=== PATIENT | male | born 1995 | race Hispanic/Latino ===

== ENCOUNTER 2019-02-26 18:38 | Emergency (ER) | payer SELFPAY ==
[2019-02-26 20:25] LABS: Urine Bacteria <20 /HPF (NONE SEEN); Urine Culture Reflex Order NOT NEEDED; Urine Mucus 1+ /HPF (NONE SEEN)
[2019-02-26 20:25] LABS: Urine Blood TRACE (NEG); Urine Glucose NEGATIVE (NEG); Urine Protein 1+ (NEG); Urine Specific Gravity >1.030 (1.005-1.030)
[2019-02-26] MEDS ORDERED: KETOROLAC 30 MG/ML INJ ONE (21:45)
[2019-02-26] MEDS ORDERED: NA CHLORIDE 0.9% 1,000 ML ONE (21:45)
[2019-02-26 21:50] LABS: Absolute Lymphocytes (CBC) 2.4 K/uL (0.7-4.9); Basophils % 0.5 % (0-1.3); Lymphocytes % 31.1 % (15.3-44.8); RBC Red Blood Cell Count 4.81 M/uL (4.33-5.43)
[2019-02-26 22:00] LABS: BUN Blood Urea Nitrogen 10 mg/dL (7-18); Bicarbonate 32 mmol/L (21-32); Glucose Level 81 mg/dL (74-106); Sodium Level 138 mmol/L (136-145)
[2019-02-26] MEDS ORDERED: CEFTRIAXONE/SWI 1gm 1 GM/10 ML SYR ONE (23:23)
--- NOTE | 2019-02-26 23:31 | EDPHYS ---
Physician Documentation [facility] Name: Renny Dixon Age: 23 yrs Sex: Male : 1995 Arrival Date: 02/26/2019 Time: 18:47 Bed 18 Private MD: ED Physician aDt Oneill HPI: 02/27 02:45 This 23 yrs old Male presents to ER via Ambulatory with complaints of Back tw4 Pain, Urinary Problem - blood. 02:45 The patient presents with pain that is acute, with no known mechanism of injury. The tw4 symptoms are located in the low back. Onset: The symptoms/episode began/occurred 1 week(s) ago. The pain does not radiate. Associated signs and symptoms: Pertinent positives: dysuria. The problem was sustained without known cause. Modifying factors: The patient symptoms are alleviated by nothing, the patient symptoms are aggravated by nothing. Severity of symptoms: At their worst the symptoms were moderate, in the emergency department the symptoms have improved. The patient has not experienced similar symptoms in the past. Historical: - Allergies: 02/26 19:26 No Known Allergies; aj1 - Home Meds: 19:26 None [Active]; aj1 - PMHx: 19:26 None; aj1 - PSHx: 19:26 None; aj1 - Immunization history:: Flu vaccine is not up to date. - Social history:: Smoking status: Patient/guardian denies using tobacco. - Ebola Screening: : Patient denies travel to an Ebola-affected area in the 21 days before illness onset. ROS: 02/27 02:45 Constitutional: Negative for fever, chills, and weight loss, Eyes: Negative for injury, tw4 pain, redness, and discharge, Cardiovascular: Negative for chest pain, palpitations, and edema, Respiratory: Negative for shortness of breath, cough, wheezing, and pleuritic chest pain, Abdomen/GI: Negative for abdominal pain, nausea, vomiting, diarrhea, and constipation, MS/Extremity: Negative for injury and deformity, Skin: Negative for injury, rash, and discoloration, Neuro: Negative for headache, weakness, numbness, tingling, and seizure. Back: Positive for pain at rest, Negative for injury or acute deformity, decreased range of motion, radiated pain. Exam: 02:45 Constitutional: This is a well developed, well nourished patient who is awake, alert, tw4 and in no acute distress. Head/Face: Normocephalic, atraumatic. Chest/axilla: Normal chest wall appearance and motion. Nontender with no deformity. No lesions are appreciated. Cardiovascular: Regular rate and rhythm with a normal S1 and S2. No gallops, murmurs, or rubs. Normal PMI, no JVD. No pulse deficits. Respiratory: Lungs have equal breath sounds bilaterally, clear to auscultation and percussion. No rales, rhonchi or wheezes noted. No increased work of breathing, no retractions or nasal flaring. Abdomen/GI: Soft, non-tender, with normal bowel sounds. No distension or tympany. No guarding or rebound. No evidence of tenderness throughout. Back: No spinal tenderness. No costovertebral tenderness. Full range of motion. MS/ Extremity: Pulses equal, no cyanosis. Neurovascular intact. Full, normal range of motion. Neuro: Awake and alert, GCS 15, oriented to person, place, time, and situation. Cranial nerves II-XII grossly intact. Motor strength 5/5 in all extremities. Sensory grossly intact. Cerebellar exam normal. Normal gait. Vital Signs: 02/26 19:26 BP 153 / 99; Pulse 78; Resp 18; Temp 98.4; Pulse Ox 100% on R/A; Weight 95.25 kg (R); aj1 Height 5 ft. 8 in. (172.72 cm) (R); Pain 7/10; 21:24 BP 110 / 60; Pulse 74; Resp 18; Pulse Ox 100% on R/A; wh 22:52 BP 118 / 54; Pulse 72; Resp 18; Pulse Ox 100% on R/A; wh 23:43 BP 119 / 56; Pulse 70; Resp 18; Pulse Ox 100% ; wh 19:26 Body Mass Index 31.93 (95.25 kg, 172.72 cm) [facility] MDM: 20:50 Patient medically screened. tw4 02/27 02:45 Differential diagnosis: Fatigue Joint Injury Ligament Injury sprain. Data reviewed: tw4 vital signs, nurses notes. Data reviewed: lab test result(s), CBC, white blood cell count, hemoglobin, hematocrit, platelets, electrolytes, sodium, potassium, chloride, serum bicarbonate, BUN, creatinine, serum glucose, hepatic panel, urinalysis, bacteruria, hematuria, radiologic studies, CT scan, and as a result, I will discharge patient. Data interpreted: Pulse oximetry: Interpretation: normal. Counseling: I had a detailed discussion with the patient and/or guardian regarding: the historical points, exam findings, and any diagnostic results supporting the discharge/admit diagnosis, lab results, radiology results. Special discussion: I discussed with the patient/guardian in detail that at this point there is no indication for admission to the hospital. It is understood, however, that if the symptoms persist or worsen the patient needs to return immediately for re-evaluation. 02/26 20:10 Order name: Urine Microscopic Only; Complete Time: 21:18 [facility] 02/26 21:18 Interpretation: Normal except: URBC 10-20; UWBC 10-20. [facility] 02/26 20:10 Order name: Urine Culture [facility] 02/26 20:18 Order name: Urine Dipstick--Ancillary (enter results); Complete Time: 21:20 [facility] 02/26 21:21 Interpretation: Normal except: USPGR >1.030; UBLD TRACE; UPROT 1+; UESTR TRACE. [facility] 02/26 21:23 Order name: CT Stone Protocol [facility] 02/26 21:23 Order name: CBC with Diff [facility] 02/26 21:23 Order name: BMP [facility] 02/26 20:01 Order name: Urine Dipstick-Ancillary (obtain specimen); Complete Time: 20:58 aa1 Administered Medications: 02/26 21:48 Drug: TORadol 30 mg Route: IVP; Site: left antecubital; 23:27 Follow up: Response: No adverse reaction; Pain is decreased 21:48 Drug: NS 0.9% 1000 ml Route: IV; Rate: 1 bolus; Site: left antecubital; 23:27 Follow up: Response: No adverse reaction; IV Status: Completed infusion 23:22 Drug: Rocephin - (cefTRIAXone) 1 grams Route: IVPB; Infused Over: 30 mins; Site: left wh antecubital; 23:28 Follow up: Response: No adverse reaction 23:45 Follow up: Response: No adverse reaction; IV Status: Completed infusion Disposition: 02/26/19 23:30 Discharged to Home. Impression: Urinary tract infection, site not specified. - Condition is Stable. - Discharge Instructions: Hematuria, Adult, Urinary Tract Infection, Adult. - Prescriptions for Macrobid 100 mg Oral Capsule - take 1 capsule by ORAL route every 12 hours for 10 days; 20 capsule. - Medication Reconciliation Form, Thank You Letter, Antibiotic Education, Prescription Opioid Use form. - Follow up: Private Physician; When: Upon discharge from the Emergency Department; Reason: Recheck today's complaints, Continuance of care. - Problem is new. - Symptoms have improved. Signatures: Dispatcher [employer] Jessica Baptiste, RN RN aj1 Bernice Alves RN RN aa1 Nadege Grijalva Terrence, MD MD tw4 Corrections: (The following items were deleted from the chart) 21:21 21:18 [place] 01-26; [facility] [place]. tw4 4 23:44 23:30 02/26/2019 23:30 Discharged to Home. Impression: Urinary tract infection, site wh not specified. Condition is Stable. Forms are Medication Reconciliation Form, Thank You Letter, Antibiotic Education, Prescription Opioid Use. Follow up: Private Physician; When: Upon discharge from the Emergency Department; Reason: Recheck today's complaints, Continuance of care. Problem is new. Symptoms have improved. tw4
--- NOTE | 2019-02-26 23:31 | ER ---
Nurse's Notes [facility] Name: Renny Dixon Age: 23 yrs Sex: Male : 1995 Arrival Date: 02/26/2019 Time: 18:47 Bed 18 Private MD: Diagnosis: Urinary tract infection, site not specified Presentation: 02/26 19:25 Presenting complaint: Patient states: "My lower back is hurting, but when I went to [facility] urinate a couple times I noticed there was blood" Denies fever. Transition of care: patient was not received from another setting of care. Onset of symptoms was February 22, 2019. Risk Assessment: Do you want to hurt yourself or someone else? Patient reports no desire to harm self or others. Initial Sepsis Screen: Does the patient meet any 2 criteria? No. Patient's initial sepsis screen is negative. Does the patient have a suspected source of infection? No. Patient's initial sepsis screen is negative. Care prior to arrival: None. 19:25 Method Of Arrival: Ambulatory [facility] 19:25 Acuity: ADRIAN 3 [facility] Triage Assessment: 19:26 General: Appears in no apparent distress. comfortable, Behavior is calm, cooperative, aj1 appropriate for age. Pain: Complains of pain in low back area Pain currently is 7 out of 10 on a pain scale. Neuro: Level of Consciousness is awake, alert, obeys commands. Cardiovascular: Patient's skin is warm and dry. Respiratory: Airway is patent Respiratory effort is even, unlabored, Respiratory pattern is regular, symmetrical. : Reports blood in urine. Musculoskeletal: Range of motion: intact in all extremities. Historical: - Allergies: 19:26 No Known Allergies; aj1 - Home Meds: 19:26 None [Active]; aj1 - PMHx: 19:26 None; aj1 - PSHx: 19:26 None; aj1 - Immunization history:: Flu vaccine is not up to date. - Social history:: Smoking status: Patient/guardian denies using tobacco. - Ebola Screening: : Patient denies travel to an Ebola-affected area in the 21 days before illness onset. Screenin:24 Abuse screen: Denies threats or abuse. Denies injuries from another. Nutritional wh screening: No deficits noted. Tuberculosis screening: No symptoms or risk factors identified. Fall Risk None identified. Assessment: 21:21 General: Appears in no apparent distress. Behavior is calm, cooperative, appropriate wh for age. Pain: Complains of pain in low back area Pain does not radiate. Neuro: Level of Consciousness is awake, alert, obeys commands, Oriented to person, place, time, situation, Appropriate for age. Cardiovascular: Capillary refill < 3 seconds. Respiratory: Airway is patent Respiratory effort is even, unlabored, Respiratory pattern is regular, symmetrical. GI: Abdomen is flat, non-distended, Bowel sounds present X 4 quads. Abd is soft and non tender X 4 quads. : Reports urinary frequency, Blood in urine. EENT: No signs and/or symptoms were reported regarding the EENT system. EENT: No signs and/or symptoms were reported regarding the EENT system. Derm: Skin is intact, is healthy with good turgor, Skin is pink, warm \\T\\ dry. normal. Musculoskeletal: Circulation, motion, and sensation intact. 22:52 Reassessment: Patient appears in no apparent distress at this time. No changes from previously documented assessment. Patient and/or family updated on plan of care and expected duration. Pain level reassessed. Patient is alert, oriented x 3, equal unlabored respirations, skin warm/dry/pink. 23:42 Reassessment: Patient appears in no apparent distress at this time. No changes from previously documented assessment. Patient and/or family updated on plan of care and expected duration. Pain level reassessed. Patient is alert, oriented x 3, equal unlabored respirations, skin warm/dry/pink. Patient states feeling better. Patient states symptoms have improved. Vital Signs: 19:26 BP 153 / 99; Pulse 78; Resp 18; Temp 98.4; Pulse Ox 100% on R/A; Weight 95.25 kg (R); aj1 Height 5 ft. 8 in. (172.72 cm) (R); Pain 7/10; 21:24 BP 110 / 60; Pulse 74; Resp 18; Pulse Ox 100% on R/A; wh 22:52 BP 118 / 54; Pulse 72; Resp 18; Pulse Ox 100% on R/A; wh 23:43 BP 119 / 56; Pulse 70; Resp 18; Pulse Ox 100% ; wh 19:26 Body Mass Index 31.93 (95.25 kg, 172.72 cm) aj1 ED Course: 18:47 Patient arrived in ED. as 19:26 Triage completed. aj1 19:26 Arm band placed on Patient placed in waiting room, Patient notified of wait time. aj1 20:08 Dat Oneill MD is Attending Physician. tw4 20:09 Urine collected: clean catch specimen, clear. aa1 20:50 Nadege Grijalva is Primary Nurse. 21:15 Inserted saline lock: 20 gauge in left antecubital area, using aseptic technique. Blood wh collected. 21:24 Patient has correct armband on for positive identification. Bed in low position. Call wh light in reach. Side rails up X 1. Pulse ox on. NIBP on. 22:29 CT Stone Protocol In Process Unspecified. EDMT 23:43 No provider procedures requiring assistance completed. IV discontinued, intact, wh bleeding controlled, No redness/swelling at site. Administered Medications: 21:48 Drug: TORadol 30 mg Route: IVP; Site: left antecubital; 23:27 Follow up: Response: No adverse reaction; Pain is decreased 21:48 Drug: NS 0.9% 1000 ml Route: IV; Rate: 1 bolus; Site: left antecubital; 23:27 Follow up: Response: No adverse reaction; IV Status: Completed infusion 23:22 Drug: Rocephin - (cefTRIAXone) 1 grams Route: IVPB; Infused Over: 30 mins; Site: left antecubital; 23:28 Follow up: Response: No adverse reaction 23:45 Follow up: Response: No adverse reaction; IV Status: Completed infusion Outcome: 23:30 Discharge ordered by . tw4 23:43 Discharged to home ambulatory, with friend. 23:43 Condition: stable 23:43 Discharge instructions given to patient, Instructed on discharge instructions, follow up and referral plans. medication usage, POC UTI Demonstrated understanding of instructions, follow-up care, medications, POC Prescriptions given X 1. 23:44 Patient left the ED. Signatures: Dispatcher [employer] EDMS Jessica Keith, RN RN aj1 Bernice Alves RN RN aa1 Bria Burt as Nadege Grijalva Dat Oneill MD MD tw4
[2019-02-27 03:30] VITALS: TEMP 98.4; O2SAT 100
[2019-02-27 03:33] VITALS: BP 119/56
--- NOTE | 2019-02-27 10:35 | RAD REPORT ---
EXAM DESCRIPTION: CT - Stone Protocol - 02/27/2019 3:25 am TECHNIQUE: CT scan of the abdomen and pelvis was performed without intravenous contrast. Stone protocol was utilized. 3.0 mm axial images were obtained along with coronal and sagittal reform atted images. DOSE OPTIMIZATION: This facility uses dose optimization techniques as appropriate to perform exams, including at least one of the following techniques: 1. Automated exposure control. 2. Adjustment of the mA and/or kV according to patient size (this includes techniques or standardized protocols for targeted exams where dose is matched to the indication/reason for exam, i.e. extremiti es or head). 3. Use of iterative reconstructive technique. COMPARISON: None. FINDINGS: Lung Bases: Normal. Liver: Normal. Spleen: Normal. Pancreas: Normal. Gallbladder: Normal. Adrenal Glands: Normal. Right Kidney: Normal. Left Kidney: Normal. Right Ureter: Normal. Left Ureter: Normal. Urinary Bladder: Normal. Retroperitoneal Structures: Normal. Bowel Survey: There is increased stool within the ascending colon and hepatic flexure. The distal ileum is unremarkable. The appendix is unremarkable. Prostate Gland: Normal in size. Peritoneal Cavity: Normal. Mesenteric Structures: Normal. Abdominal Wall: No hernia. Bony Structures: No suspicious lesions. IMPRESSION: 1. Increased stool within the ascending colon and hepatic flexure. Electronically signed by: Gary Covarrubias MD 02/26/2019 10:44 PM NEPHROLOGY SOCIAL WORKER Due to temporary technical issues with the PACS/Fluency reporting system, reports are being signed by the in house radiologist as a courtesy to ensure prompt reporting. The interpreting radiologist is f ully responsible for the content of the report.
== END 2019-02-26 23:44 | disposition home or self-care (01) ==
LOC: ER 18:38
DX: N39.0 Urinary tract infection, site not specified (principal); R31.9 Hematuria, unspecified
CPT/HCPCS: 36415; 74176; 76377; 80048; 81003; 81015; 85025; 87086; 87088; 96361; 96365; 96375; 99284; J0696; J7030

== ENCOUNTER 2021-09-12 12:05 | Emergency (ER) | payer SELFPAY ==
--- NOTE | 2021-09-12 12:28 | EDPHYS ---
Physician Documentation [facility] Name: Renny Dixon Age: 25 yrs Sex: Male : 1995 Arrival Date: 09/12/2021 Time: 12:08 Bed Waiting Private MD: ED Physician Yoandy Thomas HPI: 09/12 12:19 This 25 yrs old Male presents to ER via Wheelchair with complaints of Back en Pain. 12:19 25 yo M with right sided low back pain and spasms since yesterday after lifting 80lbs en at work. He felt a pull, but pain got progressively worse over course of day. No with increased spasms when tries to walk. No radiation to legs. Denies fever, chills, nausea, vomiting. No numbness, tingling, weakness in extremities. No bowel or bladder incontinence.. Historical: - Allergies: 12:18 No Known Allergies; iw - Home Meds: 12:18 None [Active]; iw - PMHx: 12:18 None; iw - PSHx: 12:18 None; iw - Immunization history:: Adult Immunizations up to date. - Social history:: Smoking status: Patient denies any tobacco usage or history of. ROS: 12:19 Constitutional: Negative for fever, chills, and weight loss. en 12:19 Cardiovascular: Negative for chest pain. 12:19 Respiratory: Negative for shortness of breath. 12:19 Abdomen/GI: Negative for abdominal pain, nausea, vomiting, and diarrhea. 12:19 Back: Positive for decreased range of motion, pain at rest, pain with movement, of the right low back. 12:19 : Negative for incontinence. 12:19 Neuro: Negative for numbness, tingling, weakness. 12:19 All other systems are negative. en Exam: 12:19 Constitutional: This is a well developed, well nourished patient who is awake, alert, en and in no acute distress. 12:19 Constitutional: The patient appears in obvious distress, Visibly comfortable 2/2 pain. 12:19 Head/face: Exam is negative for acute changes, obvious evidence of injury or deformity. 12:19 Neck: ROM/movement: is normal. 12:19 Cardiovascular: Rate: normal, Rhythm: regular, Pulses: no pulse deficits are appreciated, Heart sounds: normal, no murmur, no rub, no gallop. 12:19 Respiratory: the patient does not display signs of respiratory distress, Respirations: normal, Breath sounds: are clear throughout, no rales, rhonchi, no stridor, no wheezing. 12:19 Abdomen/GI: Exam negative for acute changes, Inspection: abdomen appears normal, Bowel sounds: normal, Palpation: abdomen is soft and non-tender, mass, is not appreciated. 12:19 Back: Right lumbar paraspinal spasms. No midline tenderness or step-offs. No CVA tenderness. Decreased range of motion secondary to spasms.. 12:19 Musculoskeletal/extremity: 5 out of 5 plantar flexion dorsiflexion extensor hallux longus. No foot drop. Antalgic gait secondary to back pain. 2+ DP, PT pulses. Back pain worse with movement.. 12:19 Neuro: 2+ patellar reflexes, normal peroneal nerve sensation. Negative straight leg raise.. Vital Signs: 12:15 BP 137 / 103; Pulse 86; Resp 20; Temp 97.9; Pulse Ox 99% on R/A; Weight 99.79 kg; iw Height 5 ft. 7 in. (170.18 cm); Pain 10/10; 12:15 Body Mass Index 34.46 (99.79 kg, 170.18 cm) iw MDM: 12:19 Differential diagnosis: ruptured disc, sprain. ED course: Reviewed exam findings with en family and patient. He has no radicular symptoms and no focal neurological deficits. He has palpable muscle spasms and pain is reproducible with movement consistent with back strain. Will defer imaging at this time. Will give patient dose of medication in the ED and DC home with rest, lifting precautions and ED return precautions.. 12:27 Patient medically screened. en Administered Medications: 12:35 Drug: Norman (HYDROcodone-acetaminophen) (7.5 mg-325 mg) 1 tabs Route: PO; iw 12:40 Follow up: Response: No adverse reaction iw 12:35 Drug: Robaxin (methocarbamol) 750 mg Route: PO; iw 12:40 Follow up: Response: No adverse reaction iw Disposition: 15:03 Co-signature as Attending Physician, Yoandy Thomas MD. rn Disposition Summary: 09/12/21 12:27 Discharge Ordered Location: Home en Problem: new en Symptoms: are unchanged en Condition: Stable en Diagnosis - Strain of muscle, fascia and tendon of lower back en Followup: en - With: Khanh Vasquez MD - When: As needed - Reason: Discharge Instructions: - Discharge Summary Sheet en - Acute Back Pain, Adult en - Back Injury Prevention, [id number] en Forms: - Work release form iw - Medication Reconciliation Form en - Thank You Letter en - Antibiotic Education en - Prescription Opioid Use en Prescriptions: - methocarbamol 750 mg Oral Tablet - take 1 tablet by ORAL route 3 times per day; 30 tablet; Refills: 0, Product en Selection Permitted - ketorolac 10 mg Oral tablet - take 1 tablet by ORAL route every 4-6 hours not to exceed 40 mg in 24hrs; 12 en tablet; Refills: 0, Product Selection Permitted Signatures: Henrietta Bill RN RN iw Nieto, Roman, MD MD rn Newkirk, Elizabeth, PA PA en
--- NOTE | 2021-09-12 12:28 | ER ---
Nurse's Notes [facility] Name: Renny Dixon Age: 25 yrs Sex: Male : 1995 Arrival Date: 09/12/2021 Time: 12:08 Bed Waiting Private MD: Diagnosis: Strain of muscle, fascia and tendon of lower back Presentation: 09/12 12:15 Chief complaint: Patient states: Working yesterday and picked up something heavy and iw hurt his right lower back. The pain radiates down the right leg. Denies any loss of bowel or bladder. Coronavirus screen: Client denies travel out of the [place] in the last 14 days. Ebola Screen: Patient denies travel to an Ebola-affected area in the 21 days before illness onset. Initial Sepsis Screen: Does the patient meet any 2 criteria? No. Patient's initial sepsis screen is negative. Does the patient have a suspected source of infection? No. Patient's initial sepsis screen is negative. Risk Assessment: Do you want to hurt yourself or someone else? Patient reports no desire to harm self or others. Onset of symptoms was September 11, 2021. 12:15 Method Of Arrival: Wheelchair iw 12:15 Acuity: ADRIAN 4 iw Triage Assessment: 12:18 General: Appears uncomfortable, Behavior is cooperative. Pain: Complains of pain in low iw back area and right low back. Neuro: Level of Consciousness is awake, alert, obeys commands, Oriented to person, place, time, situation, Speech is normal. Cardiovascular: Capillary refill < 3 seconds Patient's skin is warm and dry. Respiratory: Airway is patent Respiratory effort is even, unlabored, Respiratory pattern is regular, symmetrical. Musculoskeletal: Circulation, motion, and sensation intact. Capillary refill < 3 seconds. Historical: - Allergies: 12:18 No Known Allergies; iw - Home Meds: 12:18 None [Active]; iw - PMHx: 12:18 None; iw - PSHx: 12:18 None; iw - Immunization history:: Adult Immunizations up to date. - Social history:: Smoking status: Patient denies any tobacco usage or history of. Screenin:20 Abuse screen: Denies threats or abuse. Denies injuries from another. Nutritional iw screening: No deficits noted. Tuberculosis screening: No symptoms or risk factors identified. Fall Risk None identified. Assessment: 12:19 Reassessment: Patient appears in no apparent distress at this time. No changes from iw previously documented assessment. patient seen by ANGELICA Ibrahim in triage. Neuro: Lester Agitation-Sedation Scale (RASS): 0 - Alert and Calm. Vital Signs: 12:15 BP 137 / 103; Pulse 86; Resp 20; Temp 97.9; Pulse Ox 99% on R/A; Weight 99.79 kg; iw Height 5 ft. 7 in. (170.18 cm); Pain 10/10; 12:15 Body Mass Index 34.46 (99.79 kg, 170.18 cm) iw ED Course: 12:08 Patient arrived in ED. as 12:13 Kisha Ibrahim PA is PHCP. en 12:18 Triage completed. iw 12:18 Arm band placed on. iw 12:20 Patient has correct armband on for positive identification. wheelchair locked. iw 12:26 Khanh Vasquez MD is Referral Physician. en 12:28 Yoandy Thomas MD is Attending Physician. en 12:35 Henrietta Bill, RN is Primary Nurse. iw Administered Medications: 12:35 Drug: Gilbert (HYDROcodone-acetaminophen) (7.5 mg-325 mg) 1 tabs Route: PO; iw 12:40 Follow up: Response: No adverse reaction iw 12:35 Drug: Robaxin (methocarbamol) 750 mg Route: PO; iw 12:40 Follow up: Response: No adverse reaction iw Outcome: 12:27 Discharge ordered by MD. en 12:48 Patient left the ED. iw Signatures: Bria Burt Irene, RASHEL RN iw Kisha Ibrahim PA PA en
[2021-09-12] MEDS ORDERED: HYDROCODONE/APAP 7.5/325 MG TAB ONE (12:38)
[2021-09-12] MEDS ORDERED: methocarbamoL 500 MG TAB ONE (12:39)
[2021-09-12 12:55] VITALS: BP 137/103; TEMP 97.9; O2SAT 99
== END 2021-09-12 12:48 | disposition home or self-care (01) ==
LOC: ER 12:05
DX: S39.012A Strain of muscle, fascia and tendon of lower back, initial encounter (principal)
CPT/HCPCS: 99282